=== PATIENT | female | born 1960 | race Caucasian/White ===

== ENCOUNTER 2022-12-20 22:32 | Emergency (ER) | payer MEDICAID ==
[~2022-12-20] VITALS: Ht 157.5 cm; Wt 52.0 kg
[~2022-12-20 22:32] MED LIST: ROBDML PO
[2022-12-20 22:47] VITALS: BP 169/80
== END 2022-12-20 23:38 | disposition home or self-care (01) ==
LOC: ER 22:33
DX: K04.7 Periapical abscess without sinus (principal); K21.9 Gastro-esophageal reflux disease without esophagitis; Z90.49 Acquired absence of other specified parts of digestive tract
CPT/HCPCS: 99281

== ENCOUNTER 2023-01-10 12:27 | Emergency (ER) | payer MEDICAID ==
[~2023-01-10] VITALS: Ht 157.5 cm; Wt 58.2 kg
[2023-01-10 13:29] LABS: BASOPHILS % (AUTO) 0.3 % (0-1); EOSINOPHILS # (AUTO) 0.1 X10'3 (0-0.9); HEMATOCRIT 46.3 % (35.0-45.0); HEMOGLOBIN 15.7 g/dl (12.0-16.0); LYMPHOCYTES # (AUTO) 1.8 X10'3 (1.1-4.8); MEAN CORPUSCULAR HEMOGLOBIN 30.8 PG (27.0-31.0); MEAN CORPUSCULAR VOLUME 90.6 FL (78-98); MEAN PLATELET VOLUME 7.3 FL (7.4-10.4); MONOCYTES # (AUTO) 0.6 X10'3 (0-0.9); NEUTROPHILS # (AUTO) 4.2 X10'3 (1.8-7.7); NEUTROPHILS % (AUTO) 62.7 % (42-75); PLATELET COUNT 289 X10'3 (140-440); RED BLOOD COUNT 5.11 X10'6 (4.20-5.60); RED CELL DISTRIBUTION WIDTH 13.6 % (11.5-14.5); WHITE BLOOD COUNT 6.7 X10'3 (4.5-11.0)
[2023-01-10 13:43] LABS: APTT 31 SECONDS (22-32)
[2023-01-10 13:44] LABS: ALANINE AMINOTRANSFERASE 27 U/L (12-78); ALBUMIN 4.2 G/DL (3.4-5.0); ALBUMIN/GLOBULIN RATIO 1.1 (1.1-1.5); ALKALINE PHOSPHATASE 54 IU/L (46-116); ANION GAP 6 (8-16); ASPARTATE AMINO TRANSFERASE 26 U/L (10-37); BILIRUBIN,TOTAL 0.4 MG/DL (0.1-1.0); BLOOD UREA NITROGEN 14 MG/DL (7-18); BUN/CREATININE RATIO 23.7 (10.0-20.0); CALCIUM 9.6 MG/DL (8.5-10.1); CHLORIDE 103 MMOL/L (99-107); CREATININE 0.59 MG/DL (0.40-0.90); GLUCOSE 103 MG/DL (70-104); POTASSIUM 4.1 MMOL/L (3.5-5.1); SODIUM 142 MMOL/L (135-145); TOTAL CARBON DIOXIDE 32.6 MMOL/L (24-32); TOTAL PROTEIN 8.1 G/DL (6.4-8.2); eGFR > 90 ML/MIN
[2023-01-10] MEDS ORDERED: GABA-530 PO (14:52)
[2023-01-10 15:31] VITALS: BP 159/84
== END 2023-01-10 15:35 | disposition home or self-care (01) ==
LOC: ER 12:27
DX: R51.9 Headache, unspecified (principal); G89.29 Other chronic pain; K21.9 Gastro-esophageal reflux disease without esophagitis; F41.9 Anxiety disorder, unspecified; F17.200 Nicotine dependence, unspecified, uncomplicated; Z88.8 Allergy status to other drugs, medicaments and biological substances; Z79.899 Other long term (current) drug therapy
CPT/HCPCS: 36415; 70450; 71045; 80053; 85025; 85610; 85730; 93005; 99285

== ENCOUNTER 2024-09-28 11:39 | Emergency (ER) | payer MEDICAID ==
[~2024-09-28] VITALS: Ht 156.2 cm; Wt 59.1 kg
[~2024-09-28 11:39] MED LIST changes: +GABA-530 PO
[2024-09-28 11:45] VITALS: BP 175/95; PULSE 98; RESP 18; TEMP 97.8; O2SAT 96
[2024-09-28] MEDS ORDERED: PRED20TA PO (12:22)
[2024-09-28] MEDS: dexamethasone sod phosphate 10mg/ml inj PO STA (12:33)
== END 2024-09-28 12:49 | disposition home or self-care (01) ==
LOC: ER 11:41
DX: R21 Rash and other nonspecific skin eruption (principal); K21.9 Gastro-esophageal reflux disease without esophagitis; F41.9 Anxiety disorder, unspecified; G89.29 Other chronic pain; Z90.49 Acquired absence of other specified parts of digestive tract; Z79.899 Other long term (current) drug therapy; Z60.2 Problems related to living alone
CPT/HCPCS: 99283; J1100

== ENCOUNTER 2024-12-07 15:47 | Emergency (ER) | payer MEDICARE, MEDICAID ==
[~2024-12-07] VITALS: Ht 154.9 cm; Wt 60.9 kg
[2024-12-07] MEDS: ketorolac trometh 15mg/ml vial 15 MG/ML ML IM ONE (16:45)
[2024-12-07] MEDS ORDERED: TIZA6CAP PO (16:46)
[2024-12-07 16:53] VITALS: BP 132/86; PULSE 80; RESP 18; TEMP 98.8; O2SAT 98
== END 2024-12-07 16:55 | disposition home or self-care (01) ==
LOC: ER 15:47
DX: M54.15 Radiculopathy, thoracolumbar region (principal); K21.9 Gastro-esophageal reflux disease without esophagitis; F41.9 Anxiety disorder, unspecified; Z88.8 Allergy status to other drugs, medicaments and biological substances; Z90.49 Acquired absence of other specified parts of digestive tract
CPT/HCPCS: 72070; 96372; 99283; J1885

== ENCOUNTER 2025-08-08 07:59 | Emergency (ER) | payer MEDICARE, MEDICAID ==
[~2025-08-08] VITALS: Ht 154.9 cm; Wt 61.9 kg
[~2025-08-08 07:59] MED LIST changes: +TIZA6CAP PO
[2025-08-08 08:07] VITALS: TEMP 97.6
--- NOTE | 2025-08-08 08:52 | Physician Documentation ---
History of Present Illness ~ Chief Complaint: Rib pain Stated Complaint: RIB PAIN Time Seen by MD: 08:19 Primary Medical Doctor: [facility] HPI 64-year-old female presents to the ED after falling yesterday evening while searching for food. She fell on a crate. Denies any head strikes reports rib pain and sternal pain today. She adds that she has a history of severe osteo pyrosis. States that she is having difficulty taking deep breath because of the pain.. Adds that she has [place] at home to take for pain. Day of Onset: Aug 08, 2025 Tetanus within 5 Years?: Yes Allergies: Coded Allergies: Quinolones (Verified Allergy, Severe, RASH, 08/08/25) Uncoded Allergies: QUINOLINES (Allergy, Unknown, 01/10/23) Active Prescriptions See Medication Reconciliation Form. Medication Reconciliation Scheduled Gabapentin (Gabapentin), 1 CAP PO Q8H Guaifenesin/D-Methorphan Hb (Robitussin Dm), 10 ML PO Q8H Tizanidine Hcl (Zanaflex), 1 CAP PO Q8H Past Medical History Past Medical History: GERD, Chronic Pain, Osteoporosis, Anxiety Past Surgical History: cholecystectomy, orthopedic surgeries Alcohol Use: Sober Drug Use: none Lives with: Alone Lives In: Home Review of Systems All Other Systems at this time: Reviewed and Negative ROS As stated above in the HPI, otherwise all systems are reviewed and negative. Physical Exam Vital Signs: Temperature: 97.6, Source: Oral, Heart Rate: 84, Respiratory Rate: 18, BP: 168/94, Pulse Oximetry: 99, Weight: 61.900 Oxygen Flow Rate: 0 Physical Exam General: Alert, no apparent distress. Respiratory: Lungs clear, no respiratory distress. Chest: No accessory muscle use.tender mid sternum Cardiovascular: Regular rate and rhythm, no murmurs. Neurologic: Oriented x4. Psychiatric: Normal mood and affect. Skin: Normal color, warm and dry. No edema, no ecchymosis. Progress Results/Orders Results/Orders Orders - DARVIN JACOBS TRACK WELDER Evelyn Prince (08/08/25 08:24) Completed Orders - DARVIN JACOBS TRACK WELDER Evelyn Prince (08/08/25 08:24) Vital Signs 08/08/25 08/08/25 08:07 09:22 Temp 97.6 Pulse 84 88 Resp 18 16 B/P (MAP) 168/94 160/90 Pulse Ox 99 94 O2 Flow Rate 0 Medical Decision Making Additional information obtaine: old records, N/A Findings Patient's x-ray was unremarkable for any fractures per my interpretation I reassured the patient advise her to take ibuprofen or Tylenol and to monitor for any signs of pneumonia Differential Dx:Considerations: Include: Chest wall contusion, Flail chest, Myocardial contusion, Pneumothorax, Pulmonary contusion, Rib fracture, Renal contusion, Splenic fracture, Tension pneumothorax, Other Departure Disposition: 01 HOME / SELF CARE / HOMELESS Impression: Primary Impression: Rib pain Condition: Stable Discharge Instructions: Rib Contusion Additional Instructions: You may take your pain medication as prescribed. Monitor for any signs of pneumonia including severe cough fevers or shortness a breath Referrals: NO PRIMARY CARE PROVIDER (PCP) Education Educated: Patient Signature Scribe Signature: d Attestation: Scribed for Darvin Jacobs Trauma Doctor by Darvin Peter NP . 08/08/25 08:51 DARVIN JACOBS NP Aug 08, 2025 08:52
--- NOTE | 2025-08-08 08:58 | RADIOLOGY REPORT ---
[facility] EXAM[facility]ATION: DI RIBS,UNILAT INDICATION: fall ; pain COMPARISON: CHEST,SINGLE VIEW on DOS: 01/10/23 TECHNIQUE: Frontal view of the chest and 3 views of the left ribs history FINDINGS: No focal consolidation, pleural effusion or significant pneumothorax. Normal cardiomediastinal silhouette. No displaced left rib fracture. IMPRESSION: No acute cardiopulmonary disease. No displaced left rib fracture.
[2025-08-08 09:22] VITALS: BP 160/90; PULSE 88; RESP 16; O2SAT 94
== END 2025-08-08 09:33 | disposition home or self-care (01) ==
LOC: ER 08:00
DX: G89.29 Other chronic pain (principal); K21.9 Gastro-esophageal reflux disease without esophagitis; F41.9 Anxiety disorder, unspecified; Z98.890 Other specified postprocedural states; Z88.8 Allergy status to other drugs, medicaments and biological substances; Z79.899 Other long term (current) drug therapy; Z90.49 Acquired absence of other specified parts of digestive tract; Z60.2 Problems related to living alone
CPT/HCPCS: 71100; 99283